=== PATIENT | female | born 1980 | race Caucasian/White ===

== ENCOUNTER → 2021-01-12 01:56 | Outpatient (CLI) | payer OTHER, SELFPAY ==
[2021-01-12 15:23] LABS: SARS-CoV-2 RNA PCR Negative
== END ==
PROVIDERS: PCP Physician Assistant; Visit Provider Surgery Plastic and Reconstructive Surgery
DX: Z01.812 Encounter for preprocedural laboratory examination (principal); Z20.822 Contact with and (suspected) exposure to COVID-19
CPT/HCPCS: C9803; U0003; U0005

== ENCOUNTER 2021-01-12 07:44 | Outpatient (CLI) | payer OTHER, SELFPAY ==
--- NOTE | 2021-01-12 08:15 | ECG_ITS ---
Measurements Intervals [place] Rate: 58 P: 52 SD: 166 QRS: 22 QRSD: 108 T: 51 QT: 391 QTc: 387 Interpretive Statements SINUS BRADYCARDIA INCOMPLETE RIGHT BUNDLE BRANCH BLOCK BORDERLINE ECG Electronically Signed On 01-12-2021 8:05:29 CDT by Donis Ontiveros D.O.
[2021-01-12 08:16] LABS: Hematocrit 39.4 % (37.0-47.0); Hemoglobin 13.4 g/dL (12.0-15.0)
== END 2021-01-12 07:45 | disposition home or self-care (01) ==
PROVIDERS: Anesthesiology; PCP Physician Assistant; Visit Provider Surgery Plastic and Reconstructive Surgery
DX: Z01.818 Encounter for other preprocedural examination (principal)
CPT/HCPCS: 36415; 85014; 85018; 93005

== ENCOUNTER 2021-01-14 01:45 | Day surgery (SDC) | payer OTHER, SELFPAY ==
[2021-01-05 13:08] VITALS: BMI 27.3
[2021-01-14] VITALS (8 sets, daily range): BP systolic 132–146; BP diastolic 76–89; PULSE 63–89; RESP 10–18; TEMP 36.4–36.9; O2SAT 96–100
[2021-01-14] MEDS: LACTATED RINGERS 1,000 ML 30 ML IV CONT ×2 (06:45→13:58)
[2021-01-14 06:46] LABS: Urine Cotinine NEGATIVE
--- NOTE | 2021-01-14 06:49 | WPDHPUPDATE1 ---
History and Physical Update Update Date/Time: 01/14/21 06:49 History and Physical has been reviewed, including an updated exam of the patient. There are NO changes in the patient's condition. Risks, benefits, and alternatives have been discussed and questions answered. Patient agrees to proceed with procedure.
--- NOTE | 2021-01-14 07:05 | WPDANESEPPF ---
Anes - Initial Pre Proc Eval Procedure: Operation Date: 01/14/21 07:30 Proposed Procedures p Bilateral Breast Reduction - Mello Jimenez MD s Abdominoplasty With Liposuction - Mello Jimenez MD Date/Time: 01/14/21 07:05 Surgeon: Mello Jimenez MD Pre Op Diagnosis: Macromastia, Skin Laxity Patient Data Age: 40 Gender: F Height: 5 ft 9 in Weight: 84.9 kg Last Vital Signs Temp 36.9 C 01/14/21 06:33 Pulse 63 01/14/21 06:33 Resp 16 01/14/21 06:33 BP 132/77 01/14/21 06:33 Pulse Ox 100 01/14/21 06:33 Allergies Allergy/AdvReac Type Severity Reaction Status Date / Time penicillin G Allergy Severe Hives Verified 01/14/21 06:38 erythromycin base Allergy Mild Gastrointestinal Verified 01/14/21 06:38 Upset Sulfa (Sulfonamide Allergy Mild Gastrointestinal Verified 01/14/21 06:38 Antibiotics) Upset Home Medications Medication Instructions Recorded Confirmed Type lactobacillus combination no.8 3 3,000 mmu cells PO DAILY 09/24/20 01/14/21 History billion cell capsule loratadine 10 mg tablet 10 mg PO DAILY 09/24/20 01/14/21 History mometasone 50 mcg/actuation nasal 2 spray INTRANASAL DAILY 09/24/20 01/14/21 History spray docusate sodium 100 mg capsule 100 mg PO DAILY #14 cap 12/29/20 01/14/21 Rx ondansetron HCl 4 mg tablet 4 mg PO Q8H #28 tablet 12/29/20 01/14/21 Rx carisoprodol 350 mg tablet 350 mg PO TID PRN #21 tablet 12/30/20 01/14/21 Rx oxycodone-acetaminophen 5 mg-325 1 tablet PO Q6H PRN #15 tablet 12/30/20 01/14/21 Rx mg tablet multivitamin 1 tablet PO DAILY 01/05/21 01/14/21 History Laboratory Tests 01/14/21 06:31 Cotinine Negative Patient hx anesthesia problems: none Family hx anesthesia problems: none PMFSH Surgical History Surgical History History of Family History Family History Mother Colon cancer Brain tumor Social History Social History Smoking status: Never smoker Alcohol intake: current Drinks per week: 2 Alcohol use details: SOCIALLY Substance use: current Substance use type: marijuana Other substance usage details: EDIBLES Last use: 01/01/21 Living arrangements: with family Spiritual care concerns: No Anes - Eval Final PreProcedure Day of Procedure 01/14/21 07:05 Patient weight: overweight Heart: regular rate and rhythm Lungs: clear to auscultation Airway: Mallampati scale class II Neurological: alert and oriented Last oral intake: >/= 8 hours ASA classification: II Emergent: no Anesthetic plan: proceed Anesthesia type and monitoring: general ETT and standard monitoring Informed Consent: The patient's anesthetic plan and its attendant risks and benefits were discussed with the patient/family/POA. Questions were solicited and answers provided to the satisfaction of the patient/family/POA.
--- NOTE | 2021-01-14 07:12 | PM.PROC ---
Procedure Note - Detailed Date of procedure: 01/14/21 Pre-op diagnosis: Macromastia, Skin Laxity Post-op diagnosis: same Procedure performed: 1. Bilateral reduction mammaplasty 2. Progressive tension abdominoplasty 3. Suction lipectomy of abdomen Description of procedure: She is here today for bilateral breast reduction, abdominoplasty, suction lipectomy of abdomen. Previously and again today the risks, benefits, alternatives were discussed in extensive detail. I wanted her to be very realistic about the risks involved as well as expectations. We discussed aftercare and what to monitor for. She understands we can never guarantee final breast size and there will always be asymmetry. I was very upfront and honest about the risks of sensation change and even nipple loss (). We had a lengthy discussion about her goals and what we could and could not accomplish. She understands that she has a history of breast reduction which increases her risk of all complications during this procedure. I was very upfront about the risks of wound breakdown leading to loss of skin, open wounds, and need for additional procedures with permanent abdominal deformity. We discussed DVT/PE risks and management. Made sure answered all of her questions to her satisfaction today and consent was obtained. She was marked in the preoperative holding area with their verification. The patient was taken to the operating room placed supine on the operating table. Anesthesia was provided by anesthesiology. She was prepped and draped in a standard sterile fashion. A surgical time-out was taken. Stab incisions were made and I tumessed with a tumescent solution. Breast Reduction I marked out the nipple-areolar complex at 42 mm. I then de-epithelialized the pedicle. The pedicle was well left well more than 2 cm in thickness. I then removed the inferior portion of the breast as well as the central keel to get shape based on preoperative planning. At this point copiously irrigated with saline solution and verified a strict hemostasis. I reapproximated the pillars using a 2-0 PDS as well as along the IMF. I tailor tacked the breast into place with marilynn. She was placed in a sitting position. I verified the nipple-areolar complex position based on preoperative markings, intraoperative measurements, and observation which were in full agreement. This nipple-areolar complex was marked at 42 mm in size. I then placed supine and de-epithelialized this. Nipple-areolar complex was inset with 3-0 Monocryl. I closed the vertical incision with 3-0 Monocryl in the IMF with 3-0 stratafix. Then everything was closed using a running subcuticular 4-0 Monocryl followed by tissue glue. Abdomen I placed the patient in a flexed position to verify the upper and lower markings would reach. I then placed her supine. A thorough abdominal examination was completed. Stab incisions were made and used tumescent solution. A 10 blade was used to make the upper incision. I continued dissection down to the level of fascia. Elevated just what was necessary for repair of the diastasis and discontinuous undermining otherwise. I then again flexed the bed to verify the upper skin flap would reach the lower markings without tension. Once verified I placed her supine once again and a 10 blade used to make the lower incision. I elevated up to level the umbilicus and left the umbilicus intact on a well-vascularized stalk. The intervening tissue was removed. A 2 mm blunt cannula and Exparel which was mixed 20 cc in 100 cc for a total volume of 120 cc I injected deep to the fascia bilaterally as well as along the incision lines. I plicated the diastasis recti using 0 PDO stratafix barbed suture. This was in 2 separate layers using 2 separate sutures as well. I repaired around the umbilicus leaving plenty of room for well-vascularized stalk of the umbilicus with 2-0 PDS. The patient was flexed and starting from s
[2021-01-14] MEDS: CLINDAMYCIN 900 MG/D5W 50 ML 900 MG/50 ML PIGGYBACK 50 MG IVPB (07:29)
[2021-01-14] MEDS: LACTATED RINGERS IRRIG 1,000 ML, LIDOCAINE HCL 1% LOCAL INJ 50 ML, EPINEPHrine HCL INJ ... INFILTRATE (08:13)
[2021-01-14] MEDS: TRANEXAMIC ACID 1,000 MG/10 ML AMPUL 1000 MG IV PUSH (13:38)
[2021-01-14] MEDS: HYDROmorphone HCL INJ (*CRX) 1 MG/ML SYR IV PUSH (14:28)
--- NOTE | 2021-01-14 14:49 | SUR.PHASEI ---
[phone] sbar faxed floor notified
--- NOTE | 2021-01-14 15:29 | PC.NURSE ---
This patient, Dylan Angeles, was received from PACU on 01/14/21 at 1529. Patient/family oriented to unit policies and routines
[2021-01-14] MEDS: LACTATED RINGERS 1,000 ML 125 ML IV CONT (15:49)
[2021-01-14] MEDS: MORPHINE SULFATE (*CRX) 2 MG/ML INJ IV PUSH (15:49)
[2021-01-14] MEDS: ONDANSETRON INJ 4 MG/2 ML VIAL IV PUSH (15:50)
[2021-01-14] MEDS: carisoprodoL (*CRX) 350 MG TABLET PO (20:30)
[2021-01-14] MEDS: DOCUSATE SODIUM 100 MG CAPSULE PO (20:30)
[2021-01-14] MEDS: ENOXAPARIN 40 MG/0.4 ML SYRINGE SUB-Q (20:30)
[2021-01-14] MEDS: oxyCODONE/ACETAMINOPHEN (*CRX) 5-325 MG TABLET PO (20:31)
[2021-01-15 00:26] VITALS: BP 100/56; PULSE 74; RESP 16; TEMP 36.7; O2SAT 98
[2021-01-15] MEDS: carisoprodoL (*CRX) 350 MG TABLET PO (00:45)
[2021-01-15] MEDS: oxyCODONE/ACETAMINOPHEN (*CRX) 5-325 MG TABLET PO (01:00)
[2021-01-15 04:33] VITALS: BP 107/52; PULSE 74; PULSE 78; RESP 16; TEMP 37.2; O2SAT 100; O2SAT 98
--- NOTE | 2021-01-15 06:18 | WPDPN ---
Progress Note: A&P Assessment and Plan (1) Macromastia: Code(s): N62 - Hypertrophy of breast Status: Acute Assessment and Plan: She is doing very well after bilateral breast reduction, abdominoplasty, suction lipectomy of abdomen. Will discharge home. Today we spent extensive time going over the care. What monitor for. Made sure answered everyone of her questions to her satisfaction. She voiced understanding. Will discharge home. Follow up in 1 week. (2) Skin laxity: Code(s): L57.4 - Cutis laxa senilis Status: Acute Time Spent With Patient Time with patient: 15 - 25 minutes Review of Systems Review of Systems: All systems reviewed & are unremarkable except as noted in HPI and below Exam Narrative: Exam Narrative: Alert and oriented. No obvious distress. Respiratory is unlabored. Easily able to answer questions. Breasts are healing well. No signs of infection. No hematoma. No seroma. Good color and capillary refill. Abdomen is healing well. No signs of infection. No hematoma. No seroma. Good color and capillary refill. No calf tenderness. Negative Homans. Objective Data Vital Signs Vital Signs: Vital Signs - 24 hr 01/14/21 06:33 01/14/21 14:00 01/14/21 14:15 Temperature 36.9 C 36.7 C Pulse Rate 63 89 84 Respiratory Rate 16 14 12 Blood Pressure 132/77 138/84 145/79 H Pulse Oximetry 100 100 100 01/14/21 14:30 01/14/21 14:45 01/14/21 15:13 Temperature Pulse Rate 80 78 72 Respiratory Rate 10 L 12 12 Blood Pressure 146/89 H 134/76 136/84 Pulse Oximetry 100 96 99 01/14/21 16:00 01/14/21 20:38 01/15/21 00:26 Temperature 36.4 C 36.4 C 36.7 C Pulse Rate 72 81 74 Respiratory Rate 18 16 16 Blood Pressure 141/88 H 134/82 100/56 L Pulse Oximetry 100 100 98 01/15/21 04:33 Temperature 37.2 C Pulse Rate 78 Respiratory Rate 16 Blood Pressure 107/52 L Pulse Oximetry 100 Intake/Output Intake/Output: Intake & Output 01/12/21 01/13/21 01/14/21 01/15/21 23:59 23:59 23:59 23:59 Intake Total 650 1000 Output Total 380 2400 Balance 270 -1400 Meds/Results Medications: Active Medications Generic Name Dose Route Start Last Admin Trade Name Freq PRN Reason Stop Dose Admin Carisoprodol 350 mg 01/14/21 18:00 01/15/21 00:45 Carisoprodol (*Crx) 350 Mg Tablet PO 350 mg Q6HR PANKAJ Administration Docusate Sodium 100 mg 01/14/21 21:00 01/14/21 20:30 Docusate Sodium 100 Mg Capsule PO 100 mg Q12HR PANKAJ Administration Enoxaparin Sodium 40 mg 01/14/21 20:00 01/14/21 20:30 Enoxaparin 40 Mg/0.4 Ml Syringe SUB-Q 40 mg Q24H PANKAJ Administration Lactated Ringer's 1,000 mls @ 125 mls/hr 01/14/21 14:00 01/15/21 03:52 Lr - Lactated Ringers Iv IV CONT Not Given .Q8H PANKAJ Morphine Sulfate 2 mg 01/14/21 13:59 01/14/21 15:49 Morphine Sulfate (*Crx) 2 Mg/Ml Inj IV PUSH 2 mg Q2H PRN Administration Pain Ondansetron HCl 4 mg 01/14/21 13:59 01/14/21 15:50 Ondansetron Inj 4 Mg/2 Ml Vial IV PUSH 4 mg Q6H PRN Administration Nausea Oxycodone/Acetaminophen 1 - 2 tablet 01/14/21 13:59 01/15/21 01:00 Oxycodone/Acetaminophen (*Crx) 5-325 Mg Tablet PO 1 tablet Q6H PRN Administration Pain Labs Labs: Laboratory Results - last 24 hr 01/14/21 06:31 Cotinine Negative Subjective Date/time seen: 01/15/21 06:18 She states she is doing very well overnight. Pain controlled. No fevers or chills. No nausea vomiting. No shortness of breath. No chest pain. No calf tenderness.
--- NOTE | 2021-01-15 06:21 | PM.DS ---
DS: Admitting Diagnosis Admitting Diagnosis Admitting Diagnosis: Macromastia Skin laxity Localized adiposity DS: Discharge Diagnosis Discharge Diagnosis (1) Macromastia: Code(s): N62 - Hypertrophy of breast Status: Acute (2) Skin laxity: Code(s): L57.4 - Cutis laxa senilis Status: Acute (3) Localized adiposity: Code(s): E65 - Localized adiposity Status: Acute DS: Summary Hospital Course Hospital Course: She underwent bilateral breast reduction, suction lipectomy of abdomen, abdominoplasty. Postoperatively she has done very well. Will discharge home. Time Spent with Patient Time attestation: Total time spent providing and/or coordinating discharge services:20 min Exam Narrative: Exam Narrative: Alert and oriented. No obvious distress. Respiratory is unlabored. Easily able to answer questions. Breasts are healing well. No signs of infection. No hematoma. No seroma. Good color and capillary refill. Abdomen is healing well. No signs of infection. No hematoma. No seroma. Good color and capillary refill. No calf tenderness. Negative Homans. DS: Data Data Completed and Pending Pending studies at discharge: Pending at discharge 01/14/21 08:26 Surgical [PTH] Routine Labs on day of discharge: Labs from last 24 hours 01/14/21 06:31 Cotinine Negative Discharge Plan Discharge Patient Disposition: Home, Self-Care Discharge Instructions: POST OPERATIVE DISCHARGE INSTRUCTIONS MELLO JIMENEZ M.D. [facility] [address] [place] [address] [address] for 24 hours after anesthesia and while you are taking pain medication. Take all prescribed medication as directed Diet as tolerated. No lifting or activity that raises blood pressure for 48 hours. Regular walking / ambulation. May shower. When you shower do not take pain medication before showering as the combination of medication and heat may cause you to feel dizzy or pass out. No pools or tubs for 2 weeks. Call with any questions or concerns. Slowly stand up straight as tolerated. No lifting over 20 pounds or straining for 6 weeks. Dressing Care: Abdominal binder / surgical bra 23 hours per day. If you have any questions or concerns, please call the office . If it is after hours you will be directed to the instrumentation engineering technician exchange. Shortness of breath, chest pain, or other medical emergency dial 911 / proceed to the Emergency Room. Stand Alone Forms: General Discharge Instructions Follow-up/Referrals: Mello Jimenez MD [Physician] - 1 Week Discharge Medications: Continued mometasone [Nasonex] 50 mcg/actuation spray,non-aerosol 2 spray intranasal DAILY RF: 0 Adult Probiotic 3 billion cell capsule 3,000 mmu cells PO DAILY RF: 0 loratadine [Claritin] 10 mg tablet 10 mg PO DAILY RF: 0 ondansetron HCl [Zofran] 4 mg tablet 4 mg PO Q8H Qty: 28 RF: 0 docusate sodium [Colace] 100 mg capsule 100 mg PO DAILY Qty: 14 RF: 0 carisoprodol [Soma] 350 mg tablet 350 mg PO TID PRN (Reason: muscle pain) Qty: 21 RF: 0 oxycodone-acetaminophen [Percocet] 5-325 mg tablet 1 tablet PO Q6H PRN (Reason: pain) Qty: 15 RF: 0 multivitamin Tablet 1 tablet PO DAILY RF: 0
[2021-01-15] MEDS: DOCUSATE SODIUM 100 MG CAPSULE PO (07:17)
[2021-01-15 08:00] VITALS: BP 122/62; PULSE 80; RESP 18; TEMP 36.9; O2SAT 100
--- NOTE | 2021-01-15 10:07 | PC.NURSE ---
IV dc/d per shiftman. Discharge instructions given to pt. per Dr. Jimenez orders. Pt. verbalized understanding. No questions or concerns voiced. Very pleasant. Surgical foam sent home with pt. per Dr. Jimenez orders. at side.
== END 2021-01-15 09:55 | disposition home or self-care (01) ==
LOC: ANHSURGERY 07:19 → ANHOB2 15:30
PROVIDERS: PCP Physician Assistant; Visit Provider Surgery Plastic and Reconstructive Surgery
PROC: 0HBV0ZZ Excision of Bilateral Breast, Open Approach (ICD-10-PCS; CPT 19318; principal; 2021-01-14 07:30)
PROC: (CPT 19318; 2021-01-14 07:30)
DX: Z41.1 Encounter for cosmetic surgery (principal); N62 Hypertrophy of breast; L57.4 Cutis laxa senilis; E65 Localized adiposity; N60.32 Fibrosclerosis of left breast; N60.42 Mammary duct ectasia of left breast; N60.82 Other benign mammary dysplasias of left breast; Z79.899 Other long term (current) drug therapy
CPT/HCPCS: 19318; 15877; 15830; 15847; 80307; 88305; 99199; A9270; C9290; J0171; J0330; J1100; J1170; J1650; J2250; J2270; J2405; J2704; J3010; J7120